=== PATIENT | female | born 1990 | race Caucasian/White ===

== ENCOUNTER 2017-01-24 09:46 | Emergency (ER) | payer SELFPAY ==
[~2017-01-24] VITALS: Ht 149.9 cm; Wt 50.0 kg
[2017-01-24 10:28] LABS: INFLUENZA TYPE B NEGATIVE FOR TYPE B (NEGATIVE)
[2017-01-24] MEDS ORDERED: ALBUTEROL SULFATE 2.5 MG/0.5 ML NEB SOLUTION NEB ONE (10:35)
[2017-01-24] MEDS ORDERED: IBUPROFEN 600 MG TABLET PO ONE (10:45)
[2017-01-24 11:13] VITALS: BP 114/74
== END 2017-01-24 11:49 | disposition home or self-care (01) ==
LOC: EMS 09:49
DX: J11.1 Influenza due to unidentified influenza virus with other respiratory manifestations (principal); F17.210 Nicotine dependence, cigarettes, uncomplicated
CPT/HCPCS: 71010; 87804; 94640; 99285; J7613

== ENCOUNTER 2017-04-22 01:25 | Emergency (ER) | payer SELFPAY ==
[~2017-04-22] VITALS: Ht 149.9 cm; Wt 50.0 kg
[2017-04-22 01:29] VITALS: BP 126/72
== END 2017-04-22 01:54 | disposition left against medical advice (07) ==
LOC: EMS 01:26
DX: R10.30 Lower abdominal pain, unspecified (principal); F17.210 Nicotine dependence, cigarettes, uncomplicated; Z53.21 Procedure and treatment not carried out due to patient leaving prior to being seen by health care provider

== ENCOUNTER 2017-06-21 15:40 | Emergency (ER) | payer SELFPAY ==
[~2017-06-21] VITALS: Ht 160 cm; Wt 52.3 kg
[2017-06-21] MEDS ORDERED: ALBUTEROL SULFATE 2.5 MG/0.5 ML NEB SOLUTION NEB ONE (18:15)
[2017-06-21] MEDS ORDERED: ALBUTEROL SULFATE HFA 90 MCG/PUFF 8 GM INHALER IH ONE (18:15)
[2017-06-21] MEDS ORDERED: 0.9% SODIUM CHLORIDE 5 ML NEB SOLUTION NEB ONE (18:29)
[2017-06-21 19:35] VITALS: BP 117/63
== END 2017-06-21 19:37 | disposition home or self-care (01) ==
LOC: EMS 15:42
DX: J98.01 Acute bronchospasm (principal); J06.9 Acute upper respiratory infection, unspecified; F17.210 Nicotine dependence, cigarettes, uncomplicated
CPT/HCPCS: 93005; 94640; 99284; J7613; J3535